=== PATIENT | female | born 1945 | race Caucasian/White ===

== ENCOUNTER → 2017-10-03 | Outpatient (CLI) | payer MEDICARE, OTHER ==
[~2017-10-03] MED LIST: EST3 PO; [UNRECOGNIZED DRUG - OTHER]
--- NOTE | 2017-10-03 16:11 | RADIOLOGY IMAGING REPORT ---
FACILITY: [facility] PATIENT NAME: Eva Pate : 1945 MR: [id number] V: [id number] EXAM DATE: ORDERING PHYSICIAN: CARY CHEN TECHNOLOGIST: Location: [facility] - [place] Patient: Eva Pate : 1945 Visit/Account:[id number] Date of Sevice: 10/03/2017 DEXA Scan Clinical history: Menopause. Comparison: DEXA scan from 05/04/2007. LUMBAR SPINE: The bone mineral density (BMD) measured from L1-L4 correlates with a Z-score of 3 and a T-score of 1. 7 which is Normal as defined by the World Health Organization. The corresponding risk of fracture in the lumbar spine is Not increased compared with a young adult reference population. This value has increase by 4.8 % since the prior study. More than 5% change is considered significant. HIP: Bone mineral density (BMD) measured in the LEFT total hip region correlates with a Z-score 1.1 and a T-score of -0.1 which is normal as defined by the World Health Organization. The corresponding risk of fracture in the hip is Not i ncreased compared to a young adult reference population. This value has increased by 0.9 % since the prior study. More than 5% change is considered significant. T score left femoral neck -0.4 Bone mineral density (BMD) measured in the Femoral Neck region measures 0.989 g/cm?. IMPRESSION: 1. Lumbar spine: Normal. There has been 4.8% increase in the bone mineral density since the previou s exam. 2. Left Total Hip: Normal. There has been 0.9% increase in the bone mineral density since the previ ous exam. 3. Femoral Neck: Bone Mineral Density is 0.989 g/cm? The next DEXA scan of this patient should include the following sites: L1-L4 and the left hip. FRAX? WHO Fracture Risk Assessment Tool link: <http://www.shef.ac.uk/FRAX/tool.jsp?locationValue=9> PLEASE NOTE: 1) The World Health Organization defines low BMD as follows: T-score Normal > -1 Osteopenia < -1 and > -2.5 Osteoporosis < -2.5 without fractures Established osteoporosis < -2.5 with fractures 2) In general, you may wish to consider: Diagnosis Treatment Follow-up DEXA Normal BMD Prevention 2-3 years Osteopenia Prevention/therapy 1-2 years Osteoporosis Therapy Yearly 3) Fracture risk estimated from the T-score is more accurate for vertebral fractures (often spontane ous) than for hip fractures. Report Dictated By: Chantell Pike MD at 10/03/2017 4:05 PM Report E-Signed By: Chantell Pike MD at 10/03/2017 4:06 PM OZN:[email or web address]
--- NOTE | 2017-10-04 11:10 | RADIOLOGY IMAGING REPORT ---
FAC[place] [facility] [place] PATIENT NAME: JOSE PROCTOR : [id number] MR: [id number] V: [id number] EXAM DATE: ORDERING PHYSICIAN: CARY CHEN TECHNOLOGIST: Savita [place] PROCEDURE:BILATERAL DIGITAL SCREENING MAMMOGRAM WITH CAD ASSISTED INTERPRETATION & 3D TOMOSYNTHESIS COMPARISON:Prior mammograms dated 10/15/08, 09/11/07, INDICATIONS:SCREENING FINDINGS: There is a small amount of fibroglandular tissue seen throughout the breasts. The parenchymal pattern has remained stable allowing for difference in mammographic technique & patient positioning. There is no evidence of malignant appearing mass, malignant appearing calcification or other secondary sign of malignancy in either breast. DIAGNOSTIC CATEGORY 1--NEGATIVE. RECOMMENDATIONS: ROUTINE MAMMOGRAM AND CLINICAL EVALUATION. IMPRESSION: BIRADS 1: Negative No significant abnormality is seen. Dictated by: Chantell Pike M.D. on 10/03/2017 at 17:15 Transcribed by: ALFA on 10/04/2017 at 8:27 Approved by: Chantell Pike M.D. on 10/04/2017 at 11:09 [facility]
== END ==
LOC: MAMO 03:42
PROVIDERS: ATTEND Family Medicine
DX: Z13.820 Encounter for screening for osteoporosis (principal); Z12.31 Encounter for screening mammogram for malignant neoplasm of breast; Z78.0 Asymptomatic menopausal state
CPT/HCPCS: 77063; 77067; 77080

== ENCOUNTER → 2018-09-26 | Outpatient (REF) | payer MEDICARE, OTHER ==
[2018-09-26 10:54] LABS: LDL CHOLESTEROL 153 mg/dl
== END ==
LOC: ZZSENDIN 10:32
PROVIDERS: ATTEND Family Medicine
DX: E78.00 Pure hypercholesterolemia, unspecified (principal)
CPT/HCPCS: 82040; 82247; 82310; 82374; 82435; 82465; 82565; 82947; 83718; 84075; 84132; 84155; 84295; 84450; 84460; 84478; 84520

== ENCOUNTER → 2018-12-26 | Outpatient (CLI) | payer MEDICARE, OTHER ==
--- NOTE | 2018-12-27 09:42 | RADIOLOGY IMAGING REPORT ---
FACILITY: [facility] - [place] PATIENT NAME: JOSE PROCTOR : [id number] MR: [id number] V: [id number] EXAM DATE: [id number] ORDERING PHYSICIAN: CARY CHEN TECHNOLOGIST: Alejandra Lee PROCEDURE: BILATERAL DIGITAL SCREENING MAMMOGRAM WITH CAD ASSISTED INTERPRETATION & 3D TOMOSYNTHESIS REASON FOR STUDY: Screening FAMILY HISTORY OF BREAST CANCER: None BREAST PROCEDURES/TREATMENTS: None COMPARISON: 10/03/17 VIEWS OBTAINED: Bilateral 2D & 3D full field CC & MLO BREAST DENSITY: The breasts are almost entirely fatty MAMMOGRAM FINDINGS: The parenchymal pattern has remained stable allowing for difference in mammographic technique & patient positioning. IMPRESSION: BIRADS 1: Negative. DIAGNOSTIC CATEGORY 1--NEGATIVE. RECOMMENDATIONS: ROUTINE MAMMOGRAM AND CLINICAL EVALUATION. Dictated by: Chantell Pike M.D. on 12/26/2018 at 17:07 Transcribed by: ALFA on 12/27/2018 at 7:58 Approved by: Chantell Pike M.D. on 12/27/2018 at 9:41 [facility]
== END ==
LOC: MAMO 00:17
PROVIDERS: ATTEND Family Medicine
DX: Z12.31 Encounter for screening mammogram for malignant neoplasm of breast (principal)
CPT/HCPCS: 77063; 77067